=== PATIENT | female | born 1995 | race Asian ===

== ENCOUNTER 2016-07-21 23:38 | Emergency (ER) | payer OTHER ==
[~2016-07-21] VITALS: Ht 165.1 cm; Wt 54.5 kg
[~2016-07-21 23:38] MED LIST: BENZ-12 PO; TAM75UDCAP PO
[2016-07-21 23:42] VITALS: BP 117/80; PULSE 123; RESP 16; O2SAT 95
--- NOTE | 2016-07-21 23:54 | ED.REPORT ---
HPI-URI / Cough / Cold Date of Service Jul 21, 2016 ED Provider: Fabi Etienne MD 21 year old female presents to the ER accompanied by her mother complaining of sore throat onset this morning . Associated symptoms include several days of frontal headache, cough, runny nose, and fever. Symptoms have been treated with ibuprofen yesterday to treat headache. Nursing Notes Stated Complaint: SORE THROAT,NAUSEA Chief Complaint: FLU/Cold Symptoms Nursing Notes Reviewed: Yes Allergies: Coded Allergies: amoxicillin (Verified Allergy, Mild, Rash, 07/21/16) General Time Seen by MD: 23:53 Chief Complaint Sore throat Hx Obtained From: Patient Arrived By: Walk-in Onset Occurred: 5 days ago Symptom Duration: Since onset Associated with: Reports: Cough, Rhinorrhea, Denies: Shortness of breath Pertinent Negative: Pt denies other symptoms Similar Sx Previous: No Past Medical History Past Medical History None reported Smoking History Unknown if Ever Smoker Ambulatory Status Independent Review of Systems Constitutional: Reports: Fever Ears / Nose / Throat: Reports: Nasal congestion, Sore throat Respiratory: Reports: Non-productive cough, Denies: Shortness of breath GI: Denies: Abdominal pain, Constipation, Diarrhea, Nausea, Vomiting Neurologic: Reports: Headache Complete sys rev & neg: except as marked. Physical Exam Initial Vital Signs Vital Signs (First) Date Time Temp Pulse Resp B/P Pulse Ox O2 Delivery O2 Flow Rate FiO2 07/21/16 23:42 37.4 123 16 117/80 95 Room Air Initial VS: Reviewed Head / Eyes: Atraumatic, Normocephalic Neck: Supple, Non-tender, Full range of motion Cardiovascular: Regular rate & rhythm, Heart sounds normal, Intact distal pulses Abdomen / GI: Soft, Non-tender, No guarding, No rebound, No distention Extremities: Vascular intact, Neuro intact, No swelling, No tenderness Skin: Warm, Dry, No cyanosis Neurologic: Alert, Oriented, Nonfocal Psychiatric: Mood/affect normal, Behavior normal, Normal thought content General/Constitutional: Awake, Alert, Well developed, Well nourished ENT: Airway patent, Mucous membranes moist, Tympanic membs NL, Ext aud canal NL Pharynx / Tonsils / Uvula: Positive: Pharyngeal erythema Respiratory / Chest: Breath sounds NL, Breath sounds = bilat, No respiratory distress, No rales, No rhonchi, No wheezing, No retractions, No stridor Interpretation & Diagnostics Lab Results Interpretation Test 07/22/16 00:16 Hold Urine Received (Received) Re-Eval/Medical Decision Med Decision/Clinical Course 21-year-old female with no past medical history here with sore throat. Differential diagnosis includes but is not limited to viral versus bacterial pharyngitis versus viral versus bacterial upper respiratory infection. Patient is tachycardic, however, I feel it is secondary to pain from her pharyngitis. Strep test was negative. Aside from mild injection, posterior oropharynx were clear. She was given Decadron in the emergency department, advised to take ibuprofen at home, and is amenable to discharge with follow-up with her primary care physician. She has been given very strict return precautions. Re-Evaluation/Progress : Time of Eval: 00:23 Re-Evaluation/Progress Note: Discussed physical examination findings and plan to discharge. Patient is amenable to the plan. Return precautions given. All other questions addressed. Counseled Regarding: Diagnosis, Lab results, Need for follow-up, When/why to return to ED Discharge & Departure Impression: Primary Impression: Viral pharyngitis Disposition: Home Discharge Condition All VS Reviewed: Yes Condition: Stable Patient Instructions: Pharyngitis (DC) Additional Instructions: Take 800mg ibuprofen every 8 hours for your throat pain. Follow-up with your primary care provider next week if symptoms have not improved. Return to the ER if you develop high fever, chest pain, shortness of breath, or any other concerning symptoms. Referrals: [facility] [place] Attestation Portions of this note were transcribed by Rylee Hodgson. I, Dr. Etienne, personally performed the history, physical exam and medical decision-making; I reviewed and confirmed the accuracy of the information in the transcribed note. Signed by: Felipe Rubin. 07/22/2016 - 00:24 copies to: [facility] Fabi Etienne MD Jul 21, 2016 23:54 RYLEE HODGSON Jul 22, 2016 00:09
[2016-07-22] MEDS ORDERED: Dexamethasone 20 mg/2 mL Oral Solution PO ONE (00:25)
== END 2016-07-22 00:40 | disposition home or self-care (01) ==
LOC: EDBD 23:38 → SED 23:38 → EDUNIT# 23:38 → SED 07-22 00:40
DX: J02.9 Acute pharyngitis, unspecified (principal); Z88.1 Allergy status to other antibiotic agents